=== PATIENT | male | born 1970 | race Caucasian/White ===

== ENCOUNTER 2020-10-14 21:46 | Emergency (ER) | payer OTHER ==
[~2020-10-14] VITALS: Ht 175.3 cm; Wt 83.9 kg
[2020-10-14] MEDS ORDERED: ONDA4ODT MM (22:31)
== END 2020-10-14 23:17 | disposition home or self-care (01) ==
LOC: ER 21:46
DX: R51.9 Headache, unspecified (principal); R11.0 Nausea; R42 Dizziness and giddiness; Z86.16 Personal history of COVID-19; Z87.891 Personal history of nicotine dependence
CPT/HCPCS: 99284; A9270; J1100

== ENCOUNTER → 2022-01-05 | Outpatient (CLI) | payer OTHER ==
[~2022-01-05] MED LIST: ONDA4ODT MM
== END | disposition home or self-care (01) ==
LOC: LAB 11:33 → LAB SHORT 11:33
DX: D22.5 Melanocytic nevi of trunk (principal)
CPT/HCPCS: 88305